=== PATIENT | female | born 1950 | race Caucasian/White ===

== ENCOUNTER → 2025-06-19 10:33 | Outpatient (CLI) | payer MEDICARE, OTHER, SELFPAY ==
[2025-06-19 11:43] LABS: Vitamin D 25 Hydroxy (D3) 32.3 ng/mL (30.0-100.0)
[2025-06-19 11:59] LABS: TSH w/ Reflex to FT4 3.31 uIU/mL (0.47-4.68)
== END ==
PROVIDERS: PCP Family Medicine; Referring Provider Family Medicine; Visit Provider Family Medicine
DX: E03.9 Hypothyroidism, unspecified (principal); E55.9 Vitamin D deficiency, unspecified; Z12.11 Encounter for screening for malignant neoplasm of colon; M81.0 Age-related osteoporosis without current pathological fracture
CPT/HCPCS: 36415; 82306; 84443